=== PATIENT | female | born 1960 | race Caucasian/White ===

== ENCOUNTER → 2021-08-30 | Outpatient (CLI) | payer BC ==
[~2021-08-30] MED LIST: BENICAR HCT 201 EACH PO; BUPROPION XL150 MG PO; CELEBREX200 MG PO; CYTOTEC200 MCG PO; FOLIC ACID 1 MG1 MG PO; HYDROCODON-ACE1 EAC4 PO; IBU600 MG PO; LIPITOR10 MG PO; METHOTREXATE T2.5 MG PO; TRAZODONE HCL100 MG PO; XANAX1 MG PO; ZOFRAN 4 MG TAB4 MG PO
[2021-08-30 10:18] LABS: HEMOGLOBIN 12.5 gm/dl (12.3-15.3); RED BLOOD COUNT 4.06 M/UL (4.00-5.10); WHITE BLOOD COUNT 6.9 K/UL (4.5-11.0)
[2021-08-30 10:44] LABS: BUN/CREATININE RATIO 25 (0-10)
== END ==
LOC: OPSV2 09:00
PROVIDERS: Obstetrics & Gynecology
DX: Z01.818 Encounter for other preprocedural examination (principal); N80.9 Endometriosis, unspecified
CPT/HCPCS: 71046; 80053; 81001; 85025; 93005

== ENCOUNTER → 2021-09-04 | Day surgery (SDC) | payer BC | END | disposition home or self-care (01) | LOC: OR 08:30 | DX: R87.618 Other abnormal cytological findings on specimens from cervix uteri (principal); R93.89 Abnormal findings on diagnostic imaging of other specified body structures; N88.2 Stricture and stenosis of cervix uteri; Z87.42 Personal history of other diseases of the female genital tract; E78.5 Hyperlipidemia, unspecified; I10 Essential (primary) hypertension; Z79.899 Other long term (current) drug therapy; Z20.822 Contact with and (suspected) exposure to COVID-19 | CPT/HCPCS: J1100; J1885; J2001; J2370; J2405; J2704; J2795; J3010; J7120 ==

== ENCOUNTER → 2021-10-05 | Outpatient (CLI) | payer BC ==
[2021-10-06 08:16] LABS: HBSAG SCREEN Negative (Negative); HCV AB <0.1 (0.0-0.9); HEP A AB, IGM Negative (Negative); HEP B CORE AB, IGM Negative (Negative)
== END ==
LOC: LAB 11:51
PROVIDERS: Internal Medicine Rheumatology
DX: R53.83 Other fatigue (principal); Z79.899 Other long term (current) drug therapy
CPT/HCPCS: 36415; 80074